=== PATIENT | male | born 1955 | race Hispanic/Latino ===

== ENCOUNTER 2017-08-24 08:08 | Day surgery (SDC) | payer OTHER ==
[2017-08-24 08:51] LABS: Basophils % (Auto) 0.9 % (0.0-1.8); Eosinophils % (Auto) 5.9 % (0.0-4.3); Hematocrit 43.5 % (35.5-45.6); Hemoglobin 14.6 gm/dl (11.8-15.2); Mean Corpuscular HGB Conc 34 % (32-34); Mean Corpuscular Hemoglobin 30 pg (28-32); Mean Corpuscular Volume 89 fl (84-94); Platelet Count 237 K/mm3 (140-440); Red Blood Count 4.89 M/mm3 (3.65-5.03); Red Cell Distribution Width 13.6 % (13.2-15.2)
[2017-08-24] MEDS ORDERED: NACL 0.9% 500 ML 500 ML IV SCH (09:00)
[2017-08-24 09:05] LABS: Anion Gap 14 mmol/L; BUN/Creatinine Ratio 25; Blood Urea Nitrogen 20 mg/dL (9-20); Carbon Dioxide 26 mmol/L (22-30); Chloride 104.7 mmol/L (98-107); Glucose 102 mg/dL (75-100); Potassium 4.8 mmol/L (3.6-5.0); Sodium 140 mmol/L (137-145)
[2017-08-24] MEDS ORDERED: ZOFRAN IV PRN ×2 (10:12→17:00)
[2017-08-24] MEDS ORDERED: TYLENOL PO PRN ×2 (10:12→16:51)
[2017-08-24] MEDS ORDERED: HEPARIN/NS 5000 UNIT/500ML(CATH LAB) 1,000 ML IR ONE (11:48)
[2017-08-24] MEDS ORDERED: CALAN ONE (11:49)
[2017-08-24] MEDS ORDERED: NITROGLYCERIN SYRINGE 3 ML ONE (11:49)
[2017-08-24] MEDS ORDERED: VERSED ONE (11:50)
[2017-08-24] MEDS ORDERED: SUBLIMAZE ONE (11:51)
[2017-08-24] MEDS: HEPARIN 10,000 UNITS/10 ML ONE ×2 (12:04→12:05)
[2017-08-24] MEDS: XYLOCAINE 2% INFILTRATI ONE ×2 (12:04→12:11)
--- NOTE | 2017-08-24 12:56 | Cardiac Catherization Report ---
REFERRING PHYSICIAN: Dr. Toño Puente. INDICATION FOR PROCEDURE: The patient is an exceedingly pleasant 62-year-old gentleman with history of prior anterior CT having more shortness of breath and abnormal stress test referred for left heart catheterization by Dr. Toño Puente. Risks, benefits, and alternatives discussed at length prior to obtaining informed consent. 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 Prepped and draped in sterile fashion. Tuan's test in right hand was normal. He has a very small right radial; able to place a sheath, but he had some spasm. We removed the sheath and went with a groin approach. An 8 mL of 2% lidocaine used to anesthetize the right groin. A standard 6 [place] sheath used to cannulate the right common femoral artery via modified Seldinger technique. All exchanges were performed to exchange a J-tip guidewire. JL3.5 catheter used to engage the left main. No dampening or ventricularization. Cineangiography performed in all projections. JR4 catheter used to cross the aortic valve under fluoroscopic guidance. Left ventriculography performed in 30 MCFARLANE and 30 ROMANSH projections via hand injections and catheter flushed. Manual pullback performed with continuous pressure monitoring. Catheter used to engage the right coronary. No dampening or ventricularization. Cineangiography performed in all projections. Catheter removed from the body, sheath removed, manual pressure used to achieve hemostasis. DATA: Aortic pressure is 150/70, LV pressure is 150, and LVEDP of 18 mmHg. Left ventriculography reveals anterolateral dyskinesis with ejection fraction of approximately 45-50%. Mild mitral regurgitation. CORONARY ANATOMY: This is a right dominant system. Left main without significant disease, bifurcates left anterior descending and left circumflex. LAD with a chronic total occlusion proximally. Extensive left to left and right to left collaterals identified. This is known from previous catheterization. Left circumflex system without significant disease. Right coronary is tortuous courses AV groove, distally bifurcates in the posterior segment and posterolateral branch. Scattered luminal irregularities, but no discrete stenosis is identified. [id number] collaterals were also identified. CONCLUSIONS: 1. Severe single vessel coronary artery disease with a chronic total occlusion of the proximal LAD, which has been known on prior catheterization in 2013 with extensive left to left and right to left collaterals ____ and well organized left to left and right to left collaterals. 2. No significant disease noted in the left main, left circumflex, or right coronary. 3. Left ventriculography reveals anterolateral dyskinesis with an estimated ejection fraction of 45-50%. 4. High normal LVEDP. At this point, continue medical management and risk factor modifications. Follow up with Dr. Toño Puente. JOB# [id number] SBM/NTS
[2017-08-24] MEDS ORDERED: MORPHINE ONE (14:14)
[2017-08-24] MEDS ORDERED: MORPHINE IV ONE (14:30)
--- NOTE | 2017-08-24 16:35 | Short Stay Summary ---
Short Stay Documentation Date of service: 08/24/17 - History H&P: obtained from office - Allergies and Medications Current Medications: Allergies Penicillins Adverse Reaction (Verified 08/24/17 08:30) Unknown Home Medications Medication Instructions Recorded Confirmed Last Taken Type Aspirin [Adult Low Dose Aspirin EC] 81 mg PO DAILY 08/24/17 08/24/17 08/24/17 08 :30 History took 324 mg PO Carvedilol [Coreg] 6.25 mg PO BID 08/24/17 08/24/17 08/23/17 History Nitroglycerin [Nitrostat] 0.4 mg SL Q5M PRN 08/24/17 08/24/17 Unknown History Ramipril 5 mg PO QDAY 08/24/17 08/24/17 08/23/17 History Rosuvastatin (Nf) [Crestor] 20 mg PO DAILY 08/24/17 08/24/17 08/23/17 History Sertraline [Zoloft] 150 mg PO QDAY 08/24/17 08/24/17 08/23/17 History Active Medications Sodium Chloride (Nacl 0.9% 500 Ml) 500 mls @ 50 mls/hr IV DIRECT HANY Stop: 08/24/17 18:59 Last Admin: 08/24/17 09:10 Dose: 50 mls/hr - Brief post op/procedure progress note Date of procedure: 08/24/17 Pre-op diagnosis: abnormal stress test Post-op diagnosis: same Anesthesia: local Estimated blood loss: none Condition: stable - Disposition Condition at discharge: Stable Disposition: [id number] TO HOME OR SELFCARE - Discharge Diagnoses (1) Abnormal stress test Status: Chronic (2) CAD (coronary artery disease) Status: Chronic Qualifiers: Coronary Disease-Associated Artery/Lesion type: C Ruby vs. transplanted heart: N Associated angina: A Short Stay Discharge Plan Activity: advance as tolerated Diet: low fat, low cholesterol, low salt Wound: open to air, keep clean and dry, per your surgeon's advice Additional Instructions: Make follow up appointment with in 7days [phone] Follow up with: LISSA LU MD [Primary Care Provider] - 7 Days Forms: CardCath PCI D/C Instructions, Post Sedation D/C Instructions
[2017-08-24] MEDS ORDERED: MILK OF MAGNESIA PO PRN (16:51)
[2017-08-24] MEDS ORDERED: NACL 0.9% 500 ML 500 ML IV ONE (16:53)
[2017-08-24] MEDS ORDERED: DULCOLAX PR PRN (17:00)
[2017-08-24 17:55] VITALS: BP 127/75
[2017-08-24] MEDS ORDERED: NORCO 5/325 PO ONE (18:02)
[2017-08-24] MEDS ORDERED: NORCO 5/325 ONE (18:03)
[2017-08-25] MEDS ORDERED: NORVASC PO SCH (10:00)
[2017-08-25] MEDS ORDERED: COZAAR PO SCH (10:00)
[2017-08-25] MEDS ORDERED: ECOTRIN PO SCH (10:00)
[2017-08-25] MEDS ORDERED: EFFIENT PO SCH (10:12)
== END 2017-08-24 18:10 | disposition home or self-care (01) ==
LOC: CATHLABREC 08:08 → 4A 16:51 → UNDOADMOB 16:51 → CATHLABREC 18:10
PROVIDERS: ATTEND Internal Medicine
DX: I25.10 Atherosclerotic heart disease of native coronary artery without angina pectoris (principal); I25.82 Chronic total occlusion of coronary artery; I34.0 Nonrheumatic mitral (valve) insufficiency; Z88.0 Allergy status to penicillin; Z72.89 Other problems related to lifestyle; I50.9 Heart failure, unspecified
CPT/HCPCS: 36415; 80048; 85025; 85730; 93005; 93010; 93458; 96374; 99156; C1769; C1894; J1644; J2250; J2270; J3010; J7040; Q9967